=== PATIENT | female | born 1985 | race African-American/Black ===

== ENCOUNTER 2016-03-23 18:22 | Emergency (ER) | payer MEDICAID, OTHER ==
[~2016-03-23] VITALS: Ht 162.6 cm; Wt 74.8 kg
[2016-03-23 21:01] VITALS: BP 116/57
== END 2016-03-23 21:17 | disposition home or self-care (01) ==
LOC: ER 18:25
DX: S46.911A Strain of unspecified muscle, fascia and tendon at shoulder and upper arm level, right arm, initial encounter (principal); S39.012A Strain of muscle, fascia and tendon of lower back, initial encounter; V49.59XA Passenger injured in collision with other motor vehicles in traffic accident, initial encounter; Y93.89 Activity, other specified; Y99.8 Other external cause status; Y92.488 Other paved roadways as the place of occurrence of the external cause

== ENCOUNTER 2016-12-30 12:27 | Emergency (ER) | payer MEDICAID ==
[~2016-12-30] VITALS: Ht 162.6 cm; Wt 72.6 kg
[2016-12-30 12:39] VITALS: BP 131/61
== END 2016-12-30 12:50 | disposition home or self-care (01) ==
LOC: ER 12:27
DX: J02.9 Acute pharyngitis, unspecified (principal)

== ENCOUNTER 2017-03-10 12:25 | Emergency (ER) | payer MEDICAID ==
[~2017-03-10] VITALS: Ht 162.6 cm; Wt 72.6 kg
[2017-03-10 13:39] LABS: Urine Bacteria FEW /hpf (None Seen); Urine Blood TRACE /uL (Negative); Urine Specific Gravity 1.007 (1.001-1.035); Urine WBC 8 /hpf (0 - 5)
[2017-03-10 14:47] LABS: Basophils # (auto) 0 uL; Basophils % (auto) 0.3 % (0.0-2.0); Eosinophils # (auto) 0.2 uL; Eosinophils % (auto) 2.1 % (0.0-7.0); Hematocrit 38.4 % (36.0-46.0); Hemoglobin 12.7 g/dL (12.2-16.2); Lymphocytes # (auto) 2.4 uL; Mean Corpuscular Hemoglobin 29.8 pg (28.0-32.0); Mean Corpuscular Hgb Conc. 33.1 g/dL (32.0-36.0); Monocytes # (auto) 0.7 uL; Monocytes % (auto) 8.5 % (0.0-12.0); Neutrophils # (auto) 4.5 uL; Neutrophils % (auto) 58.1 % (37.0-80.0); Nucleated Red Blood Cells % 0.1 %; Platelet Count (auto) 409 10^3/uL (140-450); Red Blood Cells 4.27 10^6/uL (4.0-5.20); Red Cell Distribution Width 13.1 % (11.8-14.3); White Blood Cell 7.7 10^3/uL (4.4-10.8)
[2017-03-10 15:01] LABS: Albumin 3.7 g/dL (3.4-5.0); BUN/Creatinine Ratio 15.2; Bilirubin, Total 0.7 mg/dL (0.2-1.0); Calcium 9.2 mg/dL (8.5-10.1); Potassium 4.4 mmol/L (3.5-5.1); Total Protein 8.4 g/dL (6.4-8.2)
[2017-03-10 15:24] VITALS: BP 129/66
== END 2017-03-10 15:26 | disposition home or self-care (01) ==
LOC: ER 12:25
DX: N39.0 Urinary tract infection, site not specified (principal)
CPT/HCPCS: 36415; 76705; 80053; 81001; 81025; 83690; 85025; 94761

== ENCOUNTER 2018-09-24 14:19 | Observation (INO) | payer MEDICAID ==
[~2018-09-24] VITALS: Ht 162.6 cm; Wt 74.8 kg
[2018-09-24 14:28] VITALS: BP 105/64
== END 2018-09-24 17:45 | disposition home or self-care (01) | DRG 566 ==
LOC: ER 14:19 → NUR 14:40 → ER 14:42 → LDRP 15:05
PROVIDERS: ADMIT Obstetrics & Gynecology; ATTEND Obstetrics & Gynecology
DX: O26.893 Other specified pregnancy related conditions, third trimester (principal); R10.12 Left upper quadrant pain; R10.30 Lower abdominal pain, unspecified; R42 Dizziness and giddiness; Z3A.31 31 weeks gestation of pregnancy
CPT/HCPCS: 59025; 76805; 81002; 99284; G0378

== ENCOUNTER 2024-04-05 09:45 | Emergency (ER) | payer MEDICAID ==
[~2024-04-05] VITALS: Ht 162.6 cm; Wt 73.5 kg
--- NOTE | 2024-04-05 10:19 | ED.PDOC ---
GI ASSESSMENT HPI Comments 39-year-old female with a history of dyslipidemia, ovarian cysts and abnormal LFTs brought in by family complaining of abdominal pain for the last 4 days, associated with watery diarrhea. Patient localizes the pain to the upper abdomen, right side, and lower abdomen, and states it is constant and severe. Patient states the pain is worse with moving or walking and only mildly alleviated by remaining immobile. She denies any fever, nausea, vomiting or dysuria. She denies any blood in her stool. She does note that after she empties her bladder, she still has a sensation that her bladder is full. She denies any abnormal vaginal bleeding or discharge. Chief Complaint: Abdominal Pain Time Seen by MD: 10:02 Primary Care Provider: bryon Allergies: Coded Allergies: NO KNOWN ALLERGIES (Unverified , 06/10/11) Home Meds Active Scripts Loperamide HCl (Imodium A-D) 2 Mg Cap, 2 MG PO Q6HP PRN, #20 CAP prn diarrhea Prov:HEBER NULL MD 04/05/24 Ibuprofen Micronized (Ibuprofen) 800 Mg Tab, 800 MG PO Q8HP PRN, #30 TAB prn pain or fever Prov:HEBER NULL MD 04/05/24 Dicyclomine Hcl (BENTYL CAPSULE) 10 Mg Cp, 2 CAP PO Q6HP PRN, #30 CAP 11 Refills prn abdominal pain Prov:HEBER NULL MD 04/05/24 Ondansetron Odt 4MG Tab (ZOFRAN PO) 4 Mg Tb, 4 MG PO TID PRN, #30 TAB prn nausea/vomiting ODT TAB-DISSOLVE IN MOUTH, THEN SWALLOW Prov:HEBER NULL MD 04/05/24 Metronidazole (Flagyl) 500 Mg Tab, 1 TAB PO TID for 7 Days, #21 TAB Prov:HEBER NULL MD 04/05/24 Amoxicillin & Pot Clavulanate (AUGMENTIN TABLET) 875 Mg Tb, 875 MG PO BID for 7 Days, #14 TAB Prov:HEBER NULL MD 04/05/24 Information Source: Patient Mode of Arrival: Ambulatory Past Medical History PAST MEDICAL HISTORY: High Lipids, Liver Past Medical History (Other): Ovarian cysts Surgical History: BTL Surgical History (Other): Liposuction, tubal ligation FIRST ASSISTANT History: No Pertinent FIRST ASSISTANT History Family History Family History: Reviewed,noncontributory to illness, Unknown Social History Smoker: Non-Smoker Alcohol: Denies ETOH Use Drugs: Denies Drug Use Lives In: Home All Other Systems: Reviewed and Negative (Comprehensive systems review obtained and negative except for what is stated in the HPI.) Physical Exam General Appearance: No Apparent Distress HEENT: Other (Pupils symmetric. Face symmetric. Moist mucous membranes.) Neck: Full Range of Motion, Normal Inspection Respiratory: Lungs Clear, No Accessory Muscle Use, No Respiratory Distress, Normal Breath Sounds Cardiovascular: No Edema, No JVD, Regular Rate/Rhythm Breast Exam: Deferred Gastrointestinal: Soft, Tenderness (Bilateral upper quadrant, epigastric, right sided abdominal and lower abdominal tenderness to percussion and palpation. No rebound or guarding.) Genitalia: Deferred Pelvic: Deferred Rectal: Deferred Extremities: Normal inspection, Normal range of motion, Non-tender, No pedal edema Neurologic: Alert (Oriented x4), Normal Affect, Normal Mood, Other (Ambulatory without difficulty. No gross focal deficit.) Cerebellar Function: NOT DONE Reflexes: NOT DONE Skin: Dry, Normal Color, Warm Lymphatic: NOT DONE Was a procedure done? Was a procedure done?: No GI differential Dx Differential Diagnosis: Appendicitis, Cholangitis, Cholecystitis, Diverticular disease, Ectopic , Gastritis/PUD, Gastroenteritis, Inflammatory BD, Ischemic Bowel, Pancreatitis, UTI, Dehydration, Diabetes/ DKA, Electrolyte Imbalance, Food Poisoning, , Bacterial, Viral, Hypovolemia, Renal Failure, Stress Ulcer, Kidney Stone Other Differential Diagnosis Colitis, among others X-Ray, Labs, Meds, VS Vital Signs Date Time Temp Pulse Resp B/P (MAP) Pulse Ox O2 Delivery O2 Flow Rate FiO2 04/05/24 10:31 85 17 97/48 04/05/24 10:20 85 18 98 Room Air* 0 21 04/05/24 10:04 98.3 87 17 136/69 (91) 98 Lab Test 04/05/24 12:00 04/05/24 10:19 Range/Units Urine Color Yellow Yellow Urine Clarity Clear Clear Urine pH 5.5 5.0-9.0 Urine Specific [place] 1.029 1.001-1.035 Urine Protein Trace H Negative Urine Ketones 2+ H Negative Urine Blood Trace H Negative /uL Urine Nitrite Negative Negative Urine Bilirubin Negative Negative Urine Urobilinogen Normal Negative mg/dL Urine Leukocyte Esterase Negative Negative /uL Urine RBC 1 0 - 4 /hpf Urine Microscopic WBC 2 0-5 /HPF Urine Squamous Epithelial Cells Few <5 /hpf Urine Bacteria None seen None Seen /hpf Urine Mucus Few None Seen Urine Glucose Normal Normal mg/dL White Blood Count 9.6 4.4-10.8 10^3/uL Red Blood Count 4.72 4.0-5.20 10^6/uL Hemoglobin 13.3 12.2-16.2 g/dL Hematocrit 42.0 36.0-46.0 % Mean Corpuscular Volume 88.8 80.0-100.0 fL Mean Corpuscular Hemoglobin 28.3 28.0-32.0 pg Mean Corpuscular Hemoglobin Concent 31.8 L 32.0-36.0 g/dL Red Cell Distribution Width 13.5 11.8-14.3 % Platelet Count 399 140-450 10^3/uL Mean Platelet Volume 8.2 6.9-10.8 fL Neutrophils (%) (Auto) 76.4 37.0-80.0 % Lymphocytes (%) (Auto) 15.5 10.0-50.0 % Monocytes (%) (Auto) 6.0 0.0-12.0 % Eosinophils (%) (Auto) 1.9 0.0-7.0 % Basophils (%) (Auto) 0.2 0.0-2.0 % Neutrophils # (Auto) 7.3 1.6-8.6 10 ^3/uL Lymphocytes # (Auto) 1.5 0.4-5.4 10 ^3/uL Monocytes # (Auto) 0.6 0-1.3 10 ^3/uL Eosinophils # (Auto) 0.2 0-0.8 10 ^3/uL Basophils # (Auto) 0 0-0.2 10 ^3/uL Nucleated Red Blood Cells 0.0 % Sodium Level 139 136-145 mmol/L Potassium Level 3.8 3.5-5.1 mmol/L Chloride Level 106 98-107 mmol/L Carbon Dioxide Level 25 20-31 mmol/L Anion Gap 8 5-15 Blood Urea Nitrogen 13 9-23 mg/dL Creatinine 0.83 0.550-1.02 mg/dL Glomerular Filtration Rate Calc 92 >90 mL/min BUN/Creatinine Ratio 15.7 10.0-20.0 Serum Glucose 90 74-106 mg/dL Lactic Acid Level 1.2 0.4-2.0 mmol/L Calcium Level 10.2 8.7-10.4 mg/dL Total Bilirubin 1.0 0.2-1.0 mg/dL Aspartate Amino Transferase (AST) 10 L 13-40 U/L Alanine Aminotransferase (ALT) < 9 7-40 U/L Alkaline Phosphatase 51 46-116 U/L Total Protein 8.5 H 5.7-8.2 g/dL Albumin 5.2 H 3.2-4.8 g/dL Lipase 50 12-53 U/L Beta HCG, Quantitative 0.5 L 1.5-4.2 mIU/mL Current Medications Medications (Trade) Dose Ordered Sig/Renetta Route Start Time Stop Time Status Last Admin Sodium Chloride 1,000 ml @ 1,000 mls/hr Q1H ONCE IV 04/05/24 10:15 04/05/24 11:14 DC 04/05/24 10:30 Ondansetron HCl (Zofran) 4 mg ONCE ONCE IV 04/05/24 10:15 04/05/24 10:16 DC 04/05/24 10:30 Morphine Sulfate 4 mg ONCE ONCE IV 04/05/24 10:15 04/05/24 10:16 DC 04/05/24 10:31 [place] [address] Ph: [phone] DIAGNOSTIC IMAGING Diagnostic Imaging Report : [id number] Signed PATIENT: JORDYN AGUDELO ACCT: [id number] UNIT: [id number] : 1985 LOC: ER ROOM / BED: / AGE / SEX: 39 / F ADM STATUS: REG ER SERVICE 1009 ORDERING PHYSICIAN: HEBER NULL MD PROCEDURE(s): ABPL - CT AB PEL WO CON-NO ORAL OR IV REASON: upper abd, R sided and lower abd pain, diarrhea ORDER NUMBER(s): [id number], ACCESSION NUMBER(s): [id number] CT ABDOMEN AND PELVIS WITHOUT CONTRAST CLINICAL HISTORY: upper abd, R sided and lower abd pain, diarrhea TECHNIQUE: Multiple contiguous axial images of the abdomen and pelvis without intravenous contrast. The images were reformatted degenerate coronal and sagitt al reconstructions. All CT scans at this medical facility are performed using dose modulation techniques as appropriate to a performed exam including the following:Automated exposure control was utilized; adjustment of the MA and/or KV according to patient size; and use of iterative reconstruction technique. Radiation Dose Information: CT Dose: CTDI volume is 7 mGy. Dose-length product is 4 1 mGy*cm Comparison: None FINDINGS: Evaluation of the abdomen and pelvis is limited without intravenous contrast. The liver, gallbladder, pancreas, kidneys, adrenal glands, and spleen appear within normal limits. There is no gross evidence of abdominal lymphadenopathy. There is no free fluid or free air. The stomach grossly appears unremarkable. The small and large bowel loops demonstrate normal caliber. There are diverticula in the sigmoid colon without evidence of acute diverticulitis. A normal-appearing appendix is seen in the right lower quadrant abdomen. The abdominal aorta and IVC appear within normal limits. Bladder is decompressed limiting evaluation. The uterus appears within normal limits.. There are surgical clips along the right and left margins of the uterus. There is no gross evidence of a pelvic mass. There is no free fluid collection. Lung bases are clear. There is no acute osseous abnormality. IMPRESSION: 1. There is no acute process in the abdomen and pelvis. 2. Sigmoid diverticulosis. HS:Y ATED BY: OTONIEL PASTOR MD DICTATED DATE/TIME: 04/05/24 1200 SIGNED BY: OTONIEL PASTOR MD SIGNED DATE/TIME: 04/05/24 1200 CC: X-Ray, Labs, Meds, VS Comment 39-year-old female with a history of dyslipidemia, ovarian cysts and abnormal liver tests complaining of abdominal pain and diarrhea Vitals unremarkable Exam remarkable for upper abdominal, right-sided abdominal and lower abdominal tenderness to percussion and palpation. No rebound or guarding. Rhythm strip independently interpreted by me: Sinus rhythm, rate 87, no ectopy. CT abdomen and pelvis IMPRESSION: 1. There is no acute process in the abdomen and pelvis. 2. Sigmoid diverticulosis. CBC unremarkable, CMP unremarkable, lipase normal, hCG negative, UA pending, lactic normal Patient treated with the following in the ED: 1 L 0.9 normal saline IV bolus, morphine 4 mg IV, Zofran 4 mg IV, Rocephin 1 g IV, Flagyl 500 mg IV On re-evaluation, patient states symptoms have improved. Vitals were stable. She tolerated p.o. fluids. Hospitalization was considered, however patient has an unremarkable workup and has had rapid improvement of symptoms with treatment in the ED, and I no longer feel hospitalization is necessary. Patient now appears stable for discharge with close outpatient follow-up with her primary physician. Rx Augmentin, Flagyl, Zofran, Bentyl, ibuprofen Time of 1ST Reevaluation: 11:18 Reevaluation 1ST: Unchanged Time of 2ND Reevaluation: 14:46 Reevaluation 2ND: Improved Patient Education/Counseling: Diagnosis, Treatment, Need For Follow Up Family Education/Counseling: No Family Present Additional Information -Reviewed patient's previous visit(s): 09/24/18 DX: ABD PAIN - The following tests were ordered, and results were reviewed by me: CBC, CMP, BETA HCG, UA, CT ABD PEL - I reviewed and agreed with the following test results read by other provider: CT ABD PEL - I discussed treatments and results with medical personnel and: PATIENT Departure 1 Departure Time of Disposition: 14:45 Impression: Primary Impression: Abdominal pain Qualified Codes: R10.9 - Unspecified abdominal pain Additional Impression: Diarrhea Qualified Codes: R19.7 - Diarrhea, unspecified Disposition: HOME / SELF CARE / HOMELESS Condition: Stable Additional Instructions: Your blood tests and CT were unremarkable. I have prescribed antibiotics to treat a possible bacterial intestinal infection, as well as pain medication and medication for diarrhea and nausea. Follow-up with your primary doctor in 1-2 days. Return to ER for persistent or worsening symptoms. e-Prescriptions Loperamide HCl (Imodium A-D) 2 Mg Cap 2 MG PO Q6HP PRN, #20 CAP prn diarrhea Prov: HEBER NULL MD 04/05/24 Ibuprofen Micronized (Ibuprofen) 800 Mg Tab 800 MG PO Q8HP PRN, #30 TAB prn pain or fever Prov: HEBER NULL MD 04/05/24 Dicyclomine Hcl (BENTYL CAPSULE) 10 Mg Cp 2 CAP PO Q6HP PRN, #30 CAP 11 Refills prn abdominal pain Prov: HEBER NULL MD 04/05/24 Ondansetron Odt 4MG Tab (ZOFRAN PO) 4 Mg Tb 4 MG PO TID PRN, #30 TAB prn nausea/vomiting ODT TAB-DISSOLVE IN MOUTH, THEN SWALLOW Prov: HEBER NULL MD 04/05/24 Metronidazole (Flagyl) 500 Mg Tab 1 TAB PO TID for 7 Days, #21 TAB Prov: HEBER NULL MD 04/05/24 Amoxicillin & Pot Clavulanate (AUGMENTIN TABLET) 875 Mg Tb 875 MG PO BID for 7 Days, #14 TAB Prov: HEBER NULL MD 04/05/24 Discharged With: Relative Critical Care Note Critical Care Time?: No Stability Stability form required: No Heart Score Heart Score: Heart Score Response (Comments) Value History N/A 0 EKG N/A 0 Age N/A 0 Risk Factors N/A 0 Troponin N/A 0 Total 0 I personally scribed for HEBER NULL MD ([email or web address]) on 04/05/24 at 10:24. Electronically submitted by Raina Macias ([email or web address]). I personally scribed for HEBER NULL MD ([email or web address]) on 04/05/24 at 10:28. Electronically submitted by Raina Macias ([employer]). I personally scribed for HEBER NULL MD ([email or web address]) on 04/05/24 at 12:20. Electronically submitted by Raina Macias ([employer]). HEBER NULL MD Apr 05, 2024 10:19
[2024-04-05 10:20] VITALS: PULSE 85; RESP 18; O2SAT 98
[2024-04-05] MEDS: ONDANSETRON HCL 4 MG/2 ML VIAL IV ONE (10:30)
[2024-04-05] MEDS: SODIUM CHLORIDE 0.9% 1,000 ML IV ONE (10:30)
[2024-04-05 10:31] VITALS: BP 97/48; PULSE 85; RESP 17
[2024-04-05] MEDS: MORPHINE SULFATE 4 MG/ML SYR/VIAL IV ONE (10:31)
[2024-04-05 10:49] LABS: Basophils # (auto) 0 10 ^3/uL (0-0.2); Basophils % (auto) 0.2 % (0.0-2.0); Eosinophils # (auto) 0.2 10 ^3/uL (0-0.8); Eosinophils % (auto) 1.9 % (0.0-7.0); Hemoglobin 13.3 g/dL (12.2-16.2); Lymphocytes # (auto) 1.5 10 ^3/uL (0.4-5.4); Lymphocytes % (auto) 15.5 % (10.0-50.0); Mean Corpuscular Hemoglobin 28.3 pg (28.0-32.0); Mean Corpuscular Hgb Conc. 31.8 g/dL (32.0-36.0); Mean Corpuscular Volume 88.8 fL (80.0-100.0); Monocytes # (auto) 0.6 10 ^3/uL (0-1.3); Neutrophils # (auto) 7.3 10 ^3/uL (1.6-8.6); Neutrophils % (auto) 76.4 % (37.0-80.0); Platelet Count (auto) 399 10^3/uL (140-450); Red Blood Cells 4.72 10^6/uL (4.0-5.20); Red Cell Distribution Width 13.5 % (11.8-14.3); White Blood Cell 9.6 10^3/uL (4.4-10.8)
[2024-04-05 11:09] LABS: Alkaline Phosphatase 51 U/L (46-116); Anion Gap 8 (5-15); BUN/Creatinine Ratio 15.7 (10.0-20.0); Blood Urea Nitrogen 13 mg/dL (9-23); Calcium 10.2 mg/dL (8.7-10.4); Carbon Dioxide 25 mmol/L (20-31); Chloride 106 mmol/L (98-107); Glucose 90 mg/dL (74-106); Lipase 50 U/L (12-53); Potassium 3.8 mmol/L (3.5-5.1); Sodium 139 mmol/L (136-145)
[2024-04-05 11:13] LABS: Alanine Aminotransferase < 9 U/L (7-40); Albumin 5.2 g/dL (3.2-4.8); Aspartate Aminotransferase 10 U/L (13-40); Total Protein 8.5 g/dL (5.7-8.2)
--- NOTE | 2024-04-05 12:02 | DVH ---
CT ABDOMEN AND PELVIS WITHOUT CONTRAST CLINICAL HISTORY: upper abd, R sided and lower abd pain, diarrhea TECHNIQUE: Multiple contiguous axial images of the abdomen and pelvis without intravenous contrast. The images were reformatted degenerate coronal and sagittal reconstructions. All CT scans at this medical facility are performed using dose modulation techniques as appropriate t o a performed exam including the following:Automated exposure control was utilized; adjustment of the MA and/or KV according to patient size; and use of iterative reconstruction technique. Radiation Dose Information: CT Dose: CTDI volume is 7 mGy. Dose-length product is 4 1 mGy*cm Comparison: None FINDINGS: Evaluation of the abdomen and pelvis is limited without intravenous contrast. The liver, gallbladder, pancreas, kidneys, adrenal glands, and spleen appear within normal limits. There is no gross evidence of abdominal lymphadenopathy. There is no free fluid or free air. The stomach grossly appears unremarkable. The small and large bowel loops demonstrate normal caliber . There are diverticula in the sigmoid colon without evidence of acute diverticulitis. A normal-appe aring appendix is seen in the right lower quadrant abdomen. The abdominal aorta and IVC appear within normal limits. Bladder is decompressed limiting evaluation. The uterus appears within normal limits.. There are tonya gical clips along the right and left margins of the uterus. There is no gross evidence of a pelvic ma ss. There is no free fluid collection. Lung bases are clear. There is no acute osseous abnormality. IMPRESSION: 1. There is no acute process in the abdomen and pelvis. 2. Sigmoid diverticulosis. HS:Y
[2024-04-05] MEDS: cefTRIAXone 1GM/50ML D5W 50 ML IV ONE (14:45)
[2024-04-05] MEDS: metroNIDAZOLE 500MG/100ML 100 ML IV ONE (14:45)
[2024-04-05] MEDS ORDERED: DICY10CA PO (14:50)
[2024-04-05] MEDS ORDERED: METR-344 PO (14:50)
[2024-04-05] MEDS ORDERED: AUG875T PO (14:50)
[2024-04-05] MEDS ORDERED: IBUP-1455 PO (14:50)
[2024-04-05] MEDS ORDERED: LOPE7.5C PO (14:50)
[2024-04-05] MEDS ORDERED: ZOFR4T PO (14:50)
[2024-04-05 15:18] LABS: Urine Bacteria None Seen /hpf (None Seen)
[2024-04-05 15:47] LABS: Urine Blood TRACE /uL (Negative); Urine Clarity Clear (Clear); Urine Color Yellow (Yellow); Urine Mucus FEW (None Seen); Urine Protein, UAD TRACE (Negative); Urine Specific Gravity 1.029 (1.001-1.035); Urine Squamous Epithelial Cell FEW /hpf (<5); Urine Urobilinogen Normal (Negative); Urine WBC 2 /HPF (0-5); Urine pH 5.5 (5.0-9.0)
== END 2024-04-05 16:01 | disposition home or self-care (01) ==
LOC: ER 09:45
DX: R10.11 Right upper quadrant pain (principal); R10.2 Pelvic and perineal pain; R19.7 Diarrhea, unspecified; E78.5 Hyperlipidemia, unspecified; Z98.890 Other specified postprocedural states; Z79.899 Other long term (current) drug therapy
CPT/HCPCS: 36415; 74176; 80053; 81001; 83605; 83690; 84702; 85025; 87040; 96361; 96374; 96375; 99285; J2270; J2405; J7030